=== PATIENT | female | born 1995 | race Caucasian/White ===

== ENCOUNTER → 2017-01-26 | Outpatient (CLI) | payer OTHER ==
--- NOTE | ~2017-01-26 | CR63 ---
[facility] A Service of [facility] RADIOLOGY TEXT RESULTS PATIENT: JACOB KHAN LOCATION: [facility] : [birth year] UNIT #: [id number] AGE: [address]: BECK PEARCE APRN SEX: F ORDER DR: [id number] [facility] [address] [place], [place] [address] [id number] O MR#: [id number] Acc #: [id number] NAME: JACOB KHAN : 1995 SEX: F STUDY DATE/TIME: 01/26/2017 14:25 UNIT: [facility] ROOM: STUDY DESCRIPTION: CR Chest 2 View Attending Physician: Beck Pearce Referring Physician: Beck Pearce Ordering Physician: Sonia Pearce M.D. Primary Care Physician: Kasi Pryor M.D. MEDICAL IMAGING REPORT This report is preliminary unless electronic signature is present EXAM Two-view chest. HISTORY 21-year-old female cough and weight loss. FINDINGS 2 views of the chest demonstrate moderate lung volume satisfactory technique. No infiltrates or effusions. Heart, mediastinum, great vessels and bony thorax appear normal. IMPRESSION Normal adult two-view chest. Dictated by... Lanre Aguilera M.D. THIS IS AN ELECTRONICALLY VERIFIED REPORT Lanre Aguilera M.D. at 01/27/2017 8:24 AM ALYSSA/horace TD: 01/26/2017 22:22 JOB #: [id number] MEDICAL IMAGING REPORT Page 1 of 1 COPY
== END | disposition home or self-care (01) ==
LOC: CRAD 14:04
DX: R05 Cough (principal); R63.4 Abnormal weight loss
CPT/HCPCS: 71020